=== PATIENT | female | born 1955 | race Caucasian/White ===

== ENCOUNTER 2016-07-15 06:24 | Day surgery (SDC) | payer BC ==
[~2016-07-15] VITALS: Ht 167.6 cm; Wt 99.5 kg
[~2016-07-15 06:24] MED LIST: AMLO1TAB15 PO; ESTR1PAT40 TD; FLUO10TA27 PO; HYDR-2164 PO; LANS30CA50 PO; OMEP-29 PO
[2016-07-15 06:43] VITALS: Ht 167.6 cm; Wt 99.5 kg
[2016-07-15 06:44] VITALS: BP 171/89; PULSE 75; RESP 14; TEMP 98.1; O2SAT 97
[2016-07-15] MEDS ORDERED: LIDOCAINE 1% (10mg/ml) 2ml SDV INJ ONE (07:00)
[2016-07-15] MEDS ORDERED: LR 1,000 ML IV SCH (07:00)
--- NOTE | 2016-07-15 07:17 | ANESPREOP ---
Anesthesia Record Date and Time DATE: 07/15/16 TIME: 07:15 Pre-Op Diagnosis hx of polyps Proposed Surgical Procedure COLONOSCOPY Allergies: Coded Allergies: No Known Drug Allergies (Verified Allergy, Unknown, 12/12/08) Ht/Wt/BMI Height: 5 ' 6.00 " Weight: 99.500 kg BMI: 35.4 kg/m2 Vital Signs Date Time Temp Pulse Resp B/P Pulse Ox O2 Delivery O2 Flow Rate FiO2 07/15/16 06:44 98.1 75 14 171/89 97 Room Air Medications Inpatient Medications Current Medications Medications (Trade) Dose Ordered Sig/Prashanth Start Time Stop Time Status Last Admin Dose Admin Lactated Ringer's (Lactated Ringers) 1,000 ml @ 50 mls/hr Q20H 07/15/16 07:00 07/15/16 07:04 50 MLS/HR Amlodipine/Valsartan (Exforge 10-320 Mg Tablet) 1 Tab Tablet, 1 TAB PO DAILY, ( Reported) Last Taken: on 07/14/16 0800 Estradiol 0.1 Mg (Vivelle 0.1 Mg) 1 Patch.bwk Patch.tdsw, 1 PATCH.BWK TD, (Reported) Last Taken: on 07/07/16 Fluoxetine (Prozac) 10 Mg Tablet, 10 MG PO DAILY, ( Reported) Last Taken: on 07/14/16 0800 Hydrochlorothiazide (Hydrochlorothiazide) 25 Mg Tablet, 25 MG PO 1/2 DAILY, (Reported) Last Taken: on 07/14/16 0800 Lansoprazole (Prevacid) 30 Mg Capsule.dr, 1 CAP PO HS, (Reported) Last Taken: on Unknown Date & Time Omeprazole (Prilosec) 20 Mg Capsule.dr, 20 MG PO DAILY, (Reported) Last Taken: on 07/14/16 0800 Currently on Beta Amari: No Medical/Surgical History Anesthesia PMH: Reports: *Hypertension (PER H&P), Obesity, Reflux (PER H&P), Denies: *Angina, *OK, Anesthesia Reactions, CHF, Cancer, Deep Vein Thrombosis, Glaucoma, Hepatitis, Hiatal Hernia, Rheumatic Fever, Sleep Apnea Smoking Status: Former smoker Has pt. smoked today?: No Use Chewing Tobacco?: No Second Hand Exposure: No Substance Use Type: does not use Substance last used: unknown Alcohol Intake: none Last Drink: unknown Past Surgical History Orthopedic Surgeries: Abdominal Surgeries: Genitourinary Surgeries: Cardiac Surgeries: Endocrine Surgeries: Reproductive Surgeries: Yes - HYSTERECTOMY Neurological Surgeries: Ear Surgeries: Nose Surgeries: Throat Surgeries: Other Surgeries: Yes - COLONOSCOPY Anesthesia Adverse Reactions: FOUND none, FOUND nausea and vomiting Family Hx of Anesthesia Advers: none Hx of Motion Sickness: Yes Pertinent Findings EKG Rhythm: Sinus Rhythm Physical Exam Respiratory: Bilat breath sounds equal, Lungs clear Cardiovascular: FOUND Regular rate, rhythm, FOUND No murmur Airway Assessment Mallampati Score: II TMD: 2 Fingerbreadths Neck Extension: Fair Overall Assessment: May Be Diff Mask Vent., May Be Diff Intubation ASA: 2 Plan Anesthesia Plan: TIVA Discussion Discussed risks/options/alternatives of anesthesia and questions answered. Patient consents. Nursing pain assessment noted. Attestation Statement Prior to the delivery of any anesthetic medication, I examined the patient, developed the plan, obtained the patient's consent and discussed the risk and benefits of the procedure with the patient/guardian. KACIE VIRK CRNA July 15, 2016 07:17
[2016-07-15] MEDS ORDERED: LIDOCAINE 1% (10mg/ml) 2ml SDV ONE (07:47)
[2016-07-15] MEDS ORDERED: PROPOFOL 500mg 50 ML IV ONE (07:47)
[2016-07-15] MEDS ORDERED: ONDANSETRON 4mg/2ml INJECTION ONE (08:02)
[2016-07-15] MEDS ORDERED: PROPOFOL 200mg 20 ML IV ONE (08:33)
[2016-07-15 08:47] VITALS: BP 108/68; PULSE 70; RESP 12; TEMP 96.8; O2SAT 95
[2016-07-15 09:00] VITALS: BP 120/83; PULSE 60; RESP 14; O2SAT 94
[2016-07-15 09:15] VITALS: BP 132/83; PULSE 60; RESP 16; O2SAT 95
--- NOTE | 2016-07-15 09:25 | NUR ---
BP PT STATES ADMISSION BP HIGH FOR HER AND ATTRIBUTES BEING NERVOUS AND THAT THE BP CUFF WAS PAINFUL THE FIRST TIME. PT REPORTS POST OP BP READINGS CONSISTENT WITH HOME BP'S.
[2016-07-15 09:30] VITALS: BP 134/87; PULSE 62; RESP 16; O2SAT 96
--- NOTE | 2016-07-15 09:30 | GSPOSTPROC ---
Immediate Operative Note DATE: 07/15/16 TIME: 09:25 Postop Diagnosis: Colon polyps x 3 Surgical Procedure: C-scope w/Polypectomy Surgeon: Cecy ASA: 2 HARDY WOODWARD MD July 15, 2016 09:28
--- NOTE | 2016-07-15 09:43 | ANESPO ---
Post-Op Note Date 07/15/16 Time: 09:42 Status Pt Participated in Evaluation: Pt participated in person Vital Signs Date Time Temp Pulse Resp B/P Pulse Ox O2 Delivery O2 Flow Rate FiO2 07/15/16 09:15 60 16 132/83 95 Room Air 07/15/16 08:47 96.8 Respiratory Function: Airway patent, Regular respirations Cardiovascular Function: Regular pulse Mental Status: Alert/oriented Pain Level Intensity: 0 Hydration: Taking po fluids Complications during Recovery None apparent Follow-Up Instructions Instructions Per Surgeon PARRIS EDWARD CRNA July 15, 2016 09:43
[2016-07-15 09:45] VITALS: BP 135/83; PULSE 61; RESP 16; O2SAT 95
--- NOTE | 2016-07-16 09:25 | OPNOTEF ---
DATE OF PROCEDURE 07/15/2016 SURGEON Luis Sam MD PREOPERATIVE DIAGNOSIS 1. Personal history of adenomatous colon polyp. 2. Need for repeat colon cancer screening based on time interval of greater than 5 years. POSTOPERATIVE DIAGNOSES 1. Less than 0.5 cm sessile polyp of the cecum. 2. 0.7 cm sessile polyp of the sigmoid colon at 25 cm. 3. Less than 0.5 cm sessile polyp of the distal sigmoid colon PROCEDURE Colonoscopy with hot biopsy forceps polypectomy x 2 and hot snare polypectomy x 1. ANESTHESIA TIVA ASA CLASS 2 INDICATIONS The patient is a 60-year-old female who previously had a colonoscopy on 12/13/2008 that showed a polyp of the hepatic flexure which was a tubular adenoma with focal low-grade dysplasia and high-grade dysplasia. Repeat colonoscopy had been recommended in 5 years. FINDINGS The colon was normal except for a small polyp in the cecum, a slightly larger polyp behind a fold in the sigmoid colon at 25 cm which was difficult to snare, and a smaller sessile polyp in the distal sigmoid colon. There was no evidence of diverticulosis, inflammatory disease, or angiodysplasia. DESCRIPTION OF PROCEDURE After informed consent was obtained the patient was taken to the endoscopy suite and placed in left lateral decubitus position. IV anesthesia was administered by the anesthesia team. The patient had received a MiraLAX/Dulcolax bowel prep the day prior. An Olympus video colonoscope was inserted. An AmplifEYE device was then placed on the end of the scope. A digital rectal exam had been performed and was normal. The colonoscope was retroflexed to examine distal rectum. It was returned to a neutral position and advanced to the level of the cecum without difficulty. The bowel prep was very good with minimal residual liquid contents of the colon that were able to be evacuated via the colonoscope. Upon reaching the cecum, a small polyp was encountered. This was grasped with hot biopsy forceps and the mucosa was tented. Cautery was applied to destroy the base of the polyp. The polyp was then removed and was sent to pathology. The scope was withdrawn, examining the mucosa circumferentially. No other abnormalities were noted until there was a slightly larger polyp noted behind a fold in the sigmoid colon. The position relative to a curve in the fold of the colon made it difficult to encircle the polyp with a polypectomy snare but with external abdominal wall pressure the polyp was able to be manipulated within the snare. The snare was tightened around the base of the polyp and cautery was applied to divide the base of the polyp after the mucosa was tented. The polyp was retrieved via suction trap and was sent to pathology. The scope was withdrawn into the distal sigmoid colon and a small sessile polyp was encountered. This was removed with hot biopsy forceps polypectomy technique. The scope was then withdrawn to the rectum where the carbon dioxide insufflation was evacuated and the scope was removed. RECOMMENDATIONS Await pathology results to determine the necessary time interval for repeat colonoscopy. SHANNON
== END 2016-07-15 09:55 | disposition home or self-care (01) ==
LOC: SCU 06:24
PROVIDERS: ATTEND Surgery
DX: Z12.11 Encounter for screening for malignant neoplasm of colon (principal); D12.5 Benign neoplasm of sigmoid colon; Z86.010 Personal history of colon polyps; K21.9 Gastro-esophageal reflux disease without esophagitis; I10 Essential (primary) hypertension; Z79.899 Other long term (current) drug therapy; Z87.891 Personal history of nicotine dependence
CPT/HCPCS: 45384; 45385; J2405; J2704; J7120